=== PATIENT | female | born 1970 | race Caucasian/White ===

== ENCOUNTER 2024-03-29 04:28 | Day surgery (SDC) | payer OTHER, SELFPAY ==
[2024-03-29] VITALS (16 sets, daily range): BP systolic 92–162; BP diastolic 62–98; BMI 26.6; BMI 26.0
--- NOTE | 2024-03-29 01:36 | ED.GENMED ---
History of Present Illness
General
Chief Complaint: Abdominal Pain
Source: patient
Exam Limitations: none
Time Seen by Provider: 03/29/24 01:16
Nursing documentation reviewed up to this point in time: agreed with
History of Present Illness
History of Present Illness:
Pleasant 54-year-old female presents with right lower quadrant abdominal pain. Patient states that last evening she was out to dinner with her and ordered an impossible burger. Patient has been a vegetarian for years. She consumed the
impossible burger despite the fact that the fire patroller was not sure if it was a real burger or an impossible. Patient googled symptoms seen in someone that has been a vegetarian that inadvertently eats meat and she feels that this could be the cause of
her abdominal pain. Denies fever or chills. Does report nausea without vomiting.
Past History
Past History
ED Past Medical History: None
ED Past Surgical History: None
Social History
Tobacco: Non-smoker
Alcohol: None
Drug: None
Review of Systems
Review of Systems
Allergies reviewed?: Yes
All Other Systems: ROS reviewed and negative except as documented in HPI and ROS
Constitutional: Reports no symptoms
EENT: Reports no symptoms
Respiratory: Reports no symptoms
Cardiac: Reports no symptoms
ABD/GI: Reports abdominal pain and nausea; Denies vomiting
: Reports no symptoms
Musculoskeletal: Reports no symptoms
Skin: Reports no symptoms
Neurological: Reports no symptoms
Endocrine: Reports no symptoms
Hematologic/Lymphatic: Reports no symptoms
Psychiatric: Reports no symptoms
Phy Exam
General Physical Exam
General Presentation: well appearing and no apparent distress
General Skin: warm and dry
General Habitus: normal
General Mental: alert
General Hydration: appears well hydrated
ENT Exam
ENT Exam: EOMI, pharynx normal, neck supple and normocephalic
Eye Exam
Eye Exam: PERRL, cornea clear and conjunctiva normal
Cardiovascular Exam
Cardiovascular Exam: regular rate/rhythm, no edema, no murmur and normal peripheral pulses
Pulmonary Exam
Pulmonary Exam: lungs clear, no respiratory distress, no rales, no crackles, no rhonchi, no stridor, no wheezing and no cough
Gastrointestinal Exam
Gastrointestinal Exam: normal bowel sounds, non tender, soft, no organomegaly, no pulsatile mass, non distended and cva tenderness (Minimal right-sided)
Neurological Exam
Neurological Exam: alert, oriented x3, no motor deficits and speech normal
Musculoskeletal Exam
Musculoskeletal Exam: full ROM and no edema
Skin Exam
Skin Exam: normal color, warm/dry, no rash and no petechia
Psychiatric Exam
Psychiatric Exam: normal mood/affect
Course
Orders/Labs/Results
Orders:
Orders
03/29/24 01:17
Test Result ONCE
03/29/24 01:39
Amylase Urgent
Complete Blood Count/With Diff Urgent
Comprehensive Metabolic Panel Urgent
HCG, Serum Qualitative Screen Urgent
Lipase Urgent
03/29/24 02:15
CT Abd/pelvis W Iv Cont Urgent
Comment:
Reason For Exam: RLQ abd pain
03/29/24 03:32
Urinalysis Reflex To Culture Urgent
Date Specimen was Collected: 03/29/24
Time Specimen was Collected: 03:31
03/29/24 03:46
Piperacillin/Tazo 4.5 Gram [Zosyn] 4.5 gram in 100 ml IV NOW
03/29/24 04:10
Admit/Transfer Patient As Directed
Co-Sign Provider:
Level of Care: Observation services
Assign to:: Medical/Surgical
Physician / Group: Alexis Verdin general surgery service
Diagnosis: acute appendicitis
PRN Pain Medication Management As Directed
May give lesser potent ordered pain med per pt: Yes
preference::
Protocol:: Medication orders for pain may be administered in a
manner that supports deferring to patient preference
when the pt is:
-Requesting an ordered lesser potent pain medication.
Least to most potent pain medications are defined as:
acetaminophen < NSAID < tramadol < opioids (morphine,
oxycodone, hydromorphone).
- Requesting a lesser dose of the same medication IF
ORDERED.
- Requesting a less intrusive route of administration
if both routes are prescribed by the provider (PO <
IV).
03/29/24 04:13
Code Status As Directed
Resuscitation Status: Full Code
03/29/24 Breakfast
NPO
Allow oral meds: Yes
Allow clear liquids: Sips of Clears
Abnormal Lab Results
03/29/24
01:39
MPV 11.0 H fL
(7.4-10.4)
Absolute Monos (auto) 0.8 H 10^3/uL
(0.1-0.6)
Lymphocytes % 17.0 L %
(20.5-51.1)
Glucose 110 H mg/dl
(70-99)
03/29/24 01:39
03/29/24 01:39
Vital Signs
Initial and Last Documented VS:
Initial Vital Signs
Temp Pulse Resp BP Pulse Ox
98.8 F 94 22 162/98 98
03/29/24 01:10 03/29/24 01:10 03/29/24 01:10 03/29/24 01:10 03/29/24 01:10
Last Documented Vital Signs
Temp Pulse Resp BP Pulse Ox
98.8 F 91 16 129/90 94
03/29/24 01:10 03/29/24 04:32 03/29/24 04:32 03/29/24 04:32 03/29/24 04:32
*Critical Care Note
Total Time (30-74mins, 75-104mins- exclusive of procedures): Not Applicable
Update Note
Update Note:
CT ABDOMEN/PELVIS WITH CONTRAST
IMPRESSION:
1. Acute appendicitis, with appendix measuring up to 11 mm. Surrounding inflammatory changes. Small appendicolith within the mid appendix.
2. No bowel obstruction. Normal gallbladder.
Incidentals:
-Moderate stool burden.
- No obstructive uropathy.
- No hepatic or pancreatic mass.
- No abdominal aortic aneurysm.
- No acute osseous abnormality.
- No acute abnormality within the visualized lungs.
- No acute abnormality within the visualized soft tissues.
Case finalized on Mar 29 2024 3:40AM ET
ED Attending Note
-
Portions of this chart may have been created with voice recognition software.� Occasional wrong word or��sound alike� substitutions may have occurred due to the inherent limitations of voice recognition software.
Discharge Plan
Departure
Patient Disposition: Admit
Date of Disposition: 03/29/24
Time of Disposition: 03:44
Admit to: Med/Surg
Presentation/result/management discussed w/ accepting MD/DO: Dr Verdin
Condition: Good
Discharge Problem:
Acute appendicitis
Interventions
Interventions:
*Risk Screen - Suicide Last Done: 03/29/24 01:10
*General Assessment Last Done: 03/29/24 01:25
*Neglect/Abuse Screening Last Done: 03/29/24 01:10
ED- Fall Risk Assessment Last Done: 03/29/24 01:25
*ED COVID-19 Vaccine History Last Done: 03/29/24 01:25
KK-Cmwuud-Pxritoyvlk Assessment Last Done: 03/29/24 01:25
[2024-03-29 01:59] LABS: % Basophils 0.4 % (0-2); % Eosinophils 1.5 % (0-6); % Immature Granulocytes 0.2 % (0-0.5); % Monocytes 9.3 % (1.7-9.3); % Neutrophils 71.6 % (42.2-75.2); Absolute Eosinophils 0.1 10^3/uL (0-0.7); Absolute Lymphocytes 1.4 10^3/uL (1.2-3.4); Absolute Monocytes 0.8 10^3/uL (0.1-0.6); Absolute Neutrophils 5.8 10^3/uL (1.4-6.5); Hematocrit 38.7 % (37.0-47.0); Hemoglobin 13.2 g/dL (12.0-16.0); Mean Corp Hgb Conc. 34.1 g/dL (33.0-37.0); Mean Corpuscular Hgb 29.8 pg (27.0-31.0); Mean Corpuscular Volume 87.4 fL (81.0-99.0); Nucleated Red Blood Cells % 0 %; Platelet Count 192 10^3/uL (130-400); Red Blood Cell Count 4.43 10^6/uL (4.20-5.40); Red Cell Dist. Width 12.9 % (11.5-14.5); White Blood Cell Count 8.1 10^3/uL (4.8-10.8)
[2024-03-29 02:08] LABS: HCG, Serum Qualitative Screen Negative
[2024-03-29 02:18] LABS: ALT (SGPT) 20 U/L (0-35); AST (SGOT) 35 U/L (14-36); Albumin 4.1 g/dl (3.5-5.0); Alkaline Phosphatase 77 U/L (38-126); Amylase 61 U/L (30-110); Blood Urea Nitrogen 11 mg/dl (7-17); Calcium 10.2 mg/dl (8.4-10.2); Carbon Dioxide 25 mmol/L (22-30); Chloride 103 mmol/L (98-107); Estimated Creatinine Clearance 78 ml/min; Glucose 110 mg/dl (70-99); Lipase 61 U/L (23-300); Sodium 138 mmol/L (135-145); Total Bilirubin 0.9 mg/dl (0.2-1.3); Total Protein 6.3 g/dl (6.3-8.2); eGFR > 60.00
[2024-03-29 03:40] LABS: Urine Albumin Negative (Neg - Trace); Urine Bilirubin Negative (Negative); Urine Character Clear (Clear); Urine Color Yellow; Urine Glucose Negative (Negative); Urine Ketone Negative (Negative); Urine Leukocyte Negative (Negative); Urine Nitrite Negative (Negative); Urine Occult Blood Negative (Negative); Urine Urobilinogen Negative (Neg - 1+)
[2024-03-29] MEDS: ZOSYN 100 IV (04:25)
--- NOTE | 2024-03-29 05:08 | HPS.HSE ---
Addendum entered and electronically signed by Luis Miguel Mcgee MD 03/29/24 09:20:
I saw and examined the patient independently.
The Mining Machinery Assembler's note was reviewed and I agree with the note, assessment and plan except where noted below.
Comment: This is a 54-year-old female with a history of a laparoscopic converted to open oophorectomy who presents with a 1 day history of abdominal pain that has migrated to the right lower quadrant. Associated malaise and diarrhea. Exam, blood
work, imaging all consistent with acute appendicitis with some concern for at least localized perforation.
Will plan for a laparoscopic appendectomy in the OR today.
N.p.o., IV fluids, IV antibiotics.
Risks/Benefits/Alternatives, expected postoperative course and possible complications (bleeding, infection, injury to surrounding structures, acute/chronic pain) discussed at length. Patient wishes to proceed with surgery. All questions answered.
Consent obtained.
I spent roughly 60 minutes in total for the care of this patient today including direct patient care and counseling, reviewing labs, imaging, coordination of care, as well as documentation.
Original Note:
Family Physician
-
Family Physician: Jannette Joyner PA-C
Chief Complaint
-
abdominal bloating, pain, nausea
History of Present Illness
This is a very pleasant 54 year old female who woke up Friday morning, exercised, then ate a salad for lunch. She began to feel bloated, nauseated along with umbilical abdominal pain radiating to her right side. Denies feeling feverish or chills.
Pain did increase with movement so she spent the remainder of the day in bed. She originally believed she accidentally ate some meat on Friday (has been vegetarian for 30 years) but when symptoms didn't improve today she came to the ED for
evaluation. PMH includes DDD, seasonal allergies, and Covid infection 2021. Family history of colon polyps.
Medical History
Past Medical History
Past Medical History: Reports Other (DDD (lumbar) , COVID infection 2022)
Past Surgical History: Reports Other (ovary removal '30 years ago')
Social History
Tobacco: Non-smoker
Alcohol: Occasional
Drug: None
Personal:
Living: With Family
Employment: Employed
Family History
Family History: Other (colo polyps)
Allergies / Home Medications
Allergies reflects when Allergies were last updated in [email or web address].
Home Medications with original date entered in [email or web address]
Allergy/Medication List:
Allergies
Allergy/AdvReac Type Severity Reaction Status Date / Time
codeine Allergy Unknown Verified 03/29/24 01:12
Home Medications
cetirizine 10 mg tablet (Zyrtec) 10 mg PO DAILY PRN allergies 03/29/24
fluticasone propionate 50 mcg/actuation nasal spray,suspension (Flonase Allergy Relief) 1 spray intranasal DAILY PRN allergies 03/29/24
she states codeine was given to her in a syrup as a child and felt as though she couldn't move afterwards
Review of Systems
-
History Source: Patient and Coordinated Provider
A 12 point ROS was completed and negative except as noted: Yes
Constitutional: Reports Fatigue
EENT: Reports No Symptoms
Respiratory: Reports No Symptoms
Cardiac: Reports No Symptoms
Abdomen/GI: Reports Abdominal Pain and Nausea
: Reports No Symptoms
Musculoskeletal: Reports No Symptoms
Skin: Reports No Symptoms
Neurological: Reports No Symptoms
Endocrine: Reports No Symptoms
Hematologic/Lymphatic: Reports No Symptoms
Psych: Reports No Symptoms
Physical Exam
Vital Signs
Vital Signs
Temp Pulse Resp BP Pulse Ox
98.8 F 91 16 129/90 94
03/29/24 01:10 03/29/24 04:32 03/29/24 04:32 03/29/24 04:32 03/29/24 04:32
Physical Exam
General: Well Developed, Well Nourished and Comfortable
HEENT: NormoCephalic, Moist mucous membranes, Atraumatic and PERRLA
Respiratory: Clear and Non Labored Respirations
Cardiac: S1/S2 and Regular Rhythm
Breast: Deferred by me
GI: Soft, Tender and Distended
Rectal: Deferred by Provider
Genito-urinary: Clear Urine
Musculoskeletal: No Clubbing, No Cyanosis and No Edema
Skin: Warm and Dry
Neuro: Awake, AO x 3, No Motor Deficits and Nonfocal/grossly intact
Hematologic/Lymphatic: No Lymphadenopathy
Psych: Calm
Laboratory Results
-
03/29/24 01:39
03/29/24 01:39
Laboratory Results
Total Bilirubin 0.9 mg/dl (0.2-1.3) 03/29/24 01:39
AST 35 U/L (14-36) 03/29/24 01:39
ALT 20 U/L (0-35) 03/29/24 01:39
Alkaline Phosphatase 77 U/L (38-126) 03/29/24 01:39
Lipase 61 U/L (23-300) 03/29/24 01:39
Data Reviewed
-
CT Scan: Report Reviewed by me
Lab Data: Labs Reviewed by me
Impression/Plan
-
IMPRESSION: acute appendicitis
PLAN: This is a very pleasant 54 year old female who woke up Friday morning, exercised, then ate a salad for lunch. She began to feel bloated, nauseated along with umbilical abdominal pain radiating to her right side. Denies feeling feverish or
chills. Pain did increase with movement so she spent the remainder of the day in bed. She originally believed she accidentally ate some meat on Friday (has been vegetarian for 30 years) but when symptoms didn't improve today she came to the ED for
evaluation. PMH includes DDD, seasonal allergies, and Covid infection 2021. Family history of colon polyps.
* Acute appendicitis: NPO, NS IVF, Zosyn, Zofran prn nausea, morphine prn pain.
*Seasonal allergies: Resume Flonase and Zyrtec at discharge.
*DVT prophylaxis: Lovenox SC post op, SCDs/TEDs, oob/ambulate
*Disposition: FC. General surgery service.
[2024-03-29] MEDS: NSS 1000 IV (05:53)
[2024-03-29] MEDS: MORPHINE SULFATE 2 MG IV (06:12)
--- NOTE | 2024-03-29 09:20 | W.SUR.PREOP ---
Pre-Operative Surgical Note
-
I have examined this patient prior to the performance of the scheduled procedure.
The patient's condition is unchanged from the time of the current History and
Physical and the patient is able to undergo the scheduled procedure.
--- NOTE | 2024-03-29 10:04 | CM ---
Pt admitted for acute appendicitis
Met with pt at bedside
Reports she lives with her and daughter in a 2 story home; 5 steps to enter, 12 steps to 2nd fl
Independent, employed FT, drives
DME - none
SNF/HH - denies hx
Has ride at discharge
PCP - Jannette Joyner PA-C
Pharm - [facility]
CM will be available for d/c needs
Plan - anticipate home no needs
--- NOTE | 2024-03-29 11:53 | W.IMMPOSTOP ---
Surgical Immed Post Op Note
-
Primary Surgeon: Luis Miguel Mcgee MD
Assisting Surgeon: None
Pre-op Diagnosis: Acute appendicitis
Post-op Diagnosis: Same
Procedure Performed: Laparoscopic appendectomy
Anesthesia Type: General
Specimen / Cultures: Appendix
Estimated Blood Loss: 3 cc
Complications: None
Operative Findings: Retrocecal, nonperforated appendicitis densely adherent to the posterior cecum and the mesentery, carefully peeled off. There was an area of the colon wall that I felt was fairly close to our dissection so this was oversewn with
x2 2-0 Vicryl interrupted Lembert sutures to imbricate this area.
POST OP PLAN:
Imaging: None
Labs: Routine AM
Diet: Advance to Regular as tolerated
Analgesia: Tylenol 650mg q6 Franca, Pamella 5mg q6 PRN, Dilaudid 0.5mg q2h PRN
Neuro/vascular checks: q4h
AC/AP: Hold Therapeutic AC, Ok for DVT PPx
Activity: Ad Lori
Wound/Incisions/Drains: Routine
Abx: 4 days of antibiotics.
Dispo: RNF, anticipate discharge home today versus tomorrow pending clinical course.
--- NOTE | 2024-03-29 11:58 | OR.RPT ---
Operative Report
Operative Report
Patient Name: Jane Marcano
: 1970
Date of Operation: 03/29/2024
Preoperative Diagnosis: Acute Appendicitis
Postoperative Diagnosis: Same
Procedure(s):
Laparoscopic Appendectomy
Surgeon(s):
Dr. Mcgee
Infertility Medical Assistant(s):
SHELLEY Gray
Anesthesia: General
Estimated Blood Loss: 3 cc
Urine Output: None
Drains/Lines/Implants: None
Specimens:
1. Appendix
HPI/Surgical Indications:
This is a 54-year-old female with a history of a laparoscopic converted to open left oophorectomy who presents with a 1 day history of abdominal pain. Exam, labs and imaging are consistent with acute appendicitis. Risks/Benefits/Alternatives were
discussed at length, and the patient agreed to proceed with surgery.
Operative Findings: Retrocecal, nonperforated appendicitis densely adherent to the posterior cecum and the mesentery, carefully peeled off. Base was cleaned and taken with 2-0 PDS Endoloops. There was an area of the colon wall that I felt was
fairly close to our dissection so this was oversewn with x2 2-0 Vicryl interrupted Lembert sutures to imbricate this area.
Procedure Description:
The patient was placed in the supine position, with the left arm tucked, and general anesthesia was induced. The abdomen was prepared and draped in a sterile fashion so as to expose the entire abdomen. A surgical time out was taken. Abdominal access
was obtained with a left subcostal Veress entry which required a single pass followed by a 5 mm left lower quadrant Optiview trocar entry. After confirming no injury on entrance, two additional 5mm ports were placed in the suprapubic area just off
midline and in the infraumbilical area at the site of her previous incision. The patient was placed in Trendelenberg with the right slightly up . The appendix was identified and a window was created in the mesoappendix. The appendix was inflamed but
not perforated. It coursed posteriorly into a retrocecal location and was fairly adherent to the underlying bowel. Using a laparoscopic bipolar energy device, the meso appendix was divided, and traced to the tip of the appendix until freed. The
base of the appendix appeared uninvolved and was ligated/divided using two 0-PDS Endoloops and the energy device. The appendix was placed in a specimen retrieval bag. There was an area where our dissection was fairly close to the underlying colon
wall so this was imbricated with two 2-0 Vicryl sutures in a Lembert fashion. Patient was reoriented to the supine position and a tongue of omentum was draped over our surgical field. Hemostasis was confirmed and the ports were removed under
visualization. The specimen was passed off the field. The umbilical port was closed with a 0-PDS and the skin for all three ports was closed with interrupted monocryls and covered with dermabond. The patient was awoken from anesthesia in good
condition and transported to the recovery area.
I was the attending physician and performed the procedure with assistance from the GEOSPATIAL ANALYST above. I was present for all portions of the case, excluding skin closure.
Luis Miguel Mcgee MD
[2024-03-29] MEDS: ZOSYN IV (12:22)
--- NOTE | 2024-03-29 12:43 | SUR.PHASEI ---
Repot to Anay. Patient stable. Wiliam Anne RN BSN.
[2024-03-29] MEDS: ZOSYN 50 IV (15:32)
== END 2024-03-29 17:43 | disposition home or self-care (01) ==
LOC: SDS 04:28
PROVIDERS: EMERGENCY PHYSICIAN Student in an Organized Health Care Education/Training Program; FAMILY PHYSICIAN Physician Assistant Medical
DX: K35.80 Unspecified acute appendicitis (principal)
CPT/HCPCS: 44970; 88304; 74177; 80053; 81003; 82150; 83690; 84703; 85025; 93005; 99285; C1776; G0378; Q9967

== ENCOUNTER → 2024-07-22 18:31 | Outpatient (REF) | payer OTHER, SELFPAY | LOC: WDC 18:31 | PROVIDERS: ATTENDING PHYSICIAN Obstetrics & Gynecology Gynecology; FAMILY PHYSICIAN Physician Assistant Medical | DX: Z12.31 Encounter for screening mammogram for malignant neoplasm of breast (principal) | CPT/HCPCS: 77063; 77067 ==